=== PATIENT | female | born 1960 | race Caucasian/White ===

== ENCOUNTER 2017-04-14 23:42 | Emergency (ER) | payer OTHER ==
[~2017-04-14] VITALS: Ht 175.3 cm; Wt 127.2 kg
[2017-04-14 23:47] VITALS: BP 145/87
--- NOTE | 2017-04-15 00:01 | NUR ---
PT TAKEN TO CT FROM THE LOBBY
--- NOTE | 2017-04-15 00:10 | NUR ---
PT RETURN FROM CT TO THE LOBBY
--- NOTE | 2017-04-15 00:12 | NUR ---
PHLEB DRAWING LABS
[2017-04-15 00:27] LABS: HEMATOCRIT 41.9 % (36-48); HEMOGLOBIN 13.8 g/dL (12.0-16.0); MEAN CORPUSCULAR HEMOGLOBIN 29 pg (27-31); MEAN CORPUSCULAR HGB CONC 33 g/dL (33-37); MEAN CORPUSCULAR VOLUME 89 fL (80-94); PLATELET COUNT (AUTO) 196 K/uL (140-450); RED BLOOD CELL COUNT(AUTO) 4.72 MIL/uL (4.20-5.40); RED CELL DISTRIBUTION WIDTH 13.5 % (11.6-13.7); WHITE BLOOD COUNT (AUTO) 7.9 K/uL (4.8-10.8)
[2017-04-15 00:38] LABS: BAND % (MANUAL) 1 % (0-8); EOSINOPHILS % (MANUAL) 1 % (0-4); LYMPHOCYTES % (MANUAL) 47 % (20-46); MONOCYTES % (MANUAL) 3 % (5-12); NEUTROPHILS % (MANUAL) 48 (43-65)
[2017-04-15 00:43] LABS: ALBUMIN 3.9 g/dL (3.4-5.0); CALCIUM 8.5 mg/dL (8.5-10.1); CREATININE 1.3 mg/dL (0.6-1.3); TOTAL BILIRUBIN 0.3 mg/dL (0.0-1.0); TOTAL PROTEIN, SERUM 8.1 g/dL (6.4-8.2)
--- NOTE | 2017-04-15 01:57 | NUR ---
PT TAKEN TO BED 7
[2017-04-15 02:10] LABS: APPEARANCE,URINE SL CLOUDY (CLEAR); BILIRUBIN,URINE NEGATIVE (NEGATIVE); BLOOD, URINE TRACE-I (NEGATIVE); COLOR,URINE YELLOW (YELLOW); LEUKOCYTE ESTERASE ,URINE 2+ (NEGATIVE); NITRITE, URINE NEGATIVE (NEGATIVE); PH,URINE 5.5 (5.0-9.0); PROTEIN,URINE NEGATIVE (NEGATIVE); UGLUCOSE NEGATIVE (NEGATIVE); UROBILINOGEN,URINE 0.2 EU/dL (0.2 - 1)
[2017-04-15 02:16] LABS: BACTERIA,URINE 4+ /HPF (None Seen); RBC,URINE 3-10 (FEW) /HPF (0-5); WBC,URINE 16-25 (MOD) /HPF (0-5)
--- NOTE | 2017-04-15 02:18 | NUR ---
56Y F BIB SELF C/O CONSTIPATION X 3 DAYS. PT STATES SHE TOOK PRUNE JUICE AND DUCOLAX BUT STILL NO RELIEF. PT DENIES ANY N/V/D, SOB, CP AT THE MOMENT. BREATHING IS UNLABORED AND CLEAR BILAT.
--- NOTE | 2017-04-15 03:00 | NUR ---
Dr. Meyer evaluating patient at bedside.
[2017-04-15 03:18] VITALS: BP 132/81
--- NOTE | 2017-04-15 03:19 | NUR ---
Patient discharged with v/s stable. Written and verbal after care instructions given and explained. Patient alert, oriented and verbalized understanding of instructions. Ambulatory with steady gait. All questions addressed prior to discharge. ID band removed. Patient advised to follow up with PMD. Rx of CIPRO 500MG BID, MIRALAX DAILY given. Patient educated on indication of medication including possible reaction and side effects. Opportunity to ask questions provided and answered.
== END 2017-04-15 03:19 | disposition home or self-care (01) ==
LOC: MED 23:42
DX: K59.00 Constipation, unspecified (principal); N39.0 Urinary tract infection, site not specified; I10 Essential (primary) hypertension
CPT/HCPCS: 36415; 80053; 81001; 81025; 83690; 85025; 87086; 99285